=== PATIENT | female | born 1955 | race Two or more races ===

== ENCOUNTER → 2023-04-11 | Outpatient (CLI) | payer BC ==
[2023-04-11 09:19] LABS: BUN/Creatinine Ratio 17.6 (10.0-20.0)
== END | disposition home or self-care (01) ==
LOC: LAB 07:10
PROVIDERS: ATTEND Internal Medicine
DX: I10 Essential (primary) hypertension (principal); E78.5 Hyperlipidemia, unspecified
CPT/HCPCS: 36415; 80048; 80061

== ENCOUNTER → 2023-12-28 | Outpatient (CLI) | payer BC ==
[2023-12-28 09:18] LABS: Chloride 108 mmol/L (98-107); Potassium 4.3 mmol/L (3.5-5.1); Sodium 141 mmol/L (136-145)
[2023-12-28 09:19] LABS: Anion Gap 5 (5-15); Carbon Dioxide 28 mmol/L (20-30)
[2023-12-28 09:20] LABS: Calcium 9.7 mg/dL (8.5-10.1)
[2023-12-28 09:24] LABS: Glucose 117 mg/dL (74-106)
[2023-12-28 09:25] LABS: BUN/Creatinine Ratio 13.3 (10.0-20.0); Blood Urea Nitrogen 11 mg/dL (9-23); LDL Cholesterol 70 mg/dL (< 100); Triglycerides 156 mg/dL (< 150)
[2023-12-28 09:27] LABS: Cholesterol 126 mg/dL (< 200); HDL Cholesterol 33 mg/dL (40-59)
== END | disposition home or self-care (01) ==
LOC: LAB 08:36
PROVIDERS: ATTEND Internal Medicine
DX: I10 Essential (primary) hypertension (principal); E78.5 Hyperlipidemia, unspecified
CPT/HCPCS: 36415; 80048; 80061

== ENCOUNTER 2024-03-26 18:48 | Emergency (ER) | payer BC ==
[~2024-03-26] VITALS: Ht 162.6 cm; Wt 78.2 kg
[2024-03-26 19:05] VITALS: BP 140/62; PULSE 100
[2024-03-27 02:02] VITALS: RESP 18; O2SAT 99
== END 2024-03-27 04:50 | disposition home or self-care (01) ==
LOC: ER 18:48
DX: S20.01XA Contusion of right breast, initial encounter (principal); N60.01 Solitary cyst of right breast; I10 Essential (primary) hypertension; E78.5 Hyperlipidemia, unspecified; Z98.890 Other specified postprocedural states; W22.8XXA Striking against or struck by other objects, initial encounter; Y93.89 Activity, other specified; Y92.89 Other specified places as the place of occurrence of the external cause; Y99.8 Other external cause status
CPT/HCPCS: 76642

== ENCOUNTER → 2024-04-05 | Outpatient (CLI) | payer BC ==
[2024-04-05 12:08] LABS: Basophils # (auto) 0 10 ^3/uL (0-0.2); Basophils % (auto) 0.6 % (0.0-2.0); Eosinophils # (auto) 0.2 10 ^3/uL (0-0.8); Eosinophils % (auto) 2.5 % (0.0-7.0); Hematocrit 38.1 % (36.0-46.0); Hemoglobin 12.9 g/dL (12.2-16.2); Lymphocytes % (auto) 26.5 % (10.0-50.0); Mean Corpuscular Hemoglobin 30.3 pg (28.0-32.0); Mean Corpuscular Volume 89.3 fL (80.0-100.0); Monocytes # (auto) 0.5 10 ^3/uL (0-1.3); Monocytes % (auto) 6.2 % (0.0-12.0); Neutrophils # (auto) 4.9 10 ^3/uL (1.6-8.6); Neutrophils % (auto) 64.2 % (37.0-80.0); Red Blood Cells 4.26 10^6/uL (4.0-5.20); White Blood Cell 7.7 10^3/uL (4.4-10.8)
[2024-04-05 12:46] LABS: Erythrocyte Sedimentation Rate 12 mm/hr (0-20)
== END | disposition home or self-care (01) ==
LOC: LAB 11:58
PROVIDERS: ATTEND Internal Medicine
DX: N61.0 Mastitis without abscess (principal)
CPT/HCPCS: 36415; 85025; 85652

== ENCOUNTER → 2024-11-05 | Outpatient (CLI) | payer BC ==
[2024-11-05 09:38] LABS: Triglycerides 113 mg/dL (< 150)
[2024-11-05 09:39] LABS: Cholesterol 123 mg/dL (< 200); LDL Cholesterol 68 mg/dL (< 100)
[2024-11-05 09:52] LABS: HDL Cholesterol 40 mg/dL (40-59)
== END | disposition home or self-care (01) ==
LOC: LAB 08:40
PROVIDERS: ATTEND Internal Medicine
DX: E78.5 Hyperlipidemia, unspecified (principal)
CPT/HCPCS: 36415; 80061

== ENCOUNTER → 2025-04-16 | Outpatient (CLI) | payer BC | END | disposition home or self-care (01) | LOC: LAB 14:41 | PROVIDERS: ATTEND Internal Medicine | DX: Z12.11 Encounter for screening for malignant neoplasm of colon (principal) | CPT/HCPCS: 82270 ==

== ENCOUNTER 2025-08-06 08:20 | Outpatient (CLI) | payer BC ==
[2025-08-06 08:54] LABS: Anion Gap 7 (5-15); Carbon Dioxide 27 mmol/L (20-31); Potassium 4.4 mmol/L (3.5-5.1); Sodium 142 mmol/L (136-145)
[2025-08-06 08:55] LABS: Calcium 9.6 mg/dL (8.7-10.4)
[2025-08-06 09:00] LABS: BUN/Creatinine Ratio 15.1 (10.0-20.0); Blood Urea Nitrogen 11 mg/dL (9-23); Chloride 108 mmol/L (98-107); Glucose 105 mg/dL (74-106); Triglycerides 141 mg/dL (< 150)
[2025-08-06 09:02] LABS: Cholesterol 124 mg/dL (< 200); HDL Cholesterol 34 mg/dL (40-59)
== END 2025-08-06 17:00 | disposition home or self-care (01) ==
LOC: LAB 08:20
PROVIDERS: ATTEND Internal Medicine
DX: I10 Essential (primary) hypertension (principal); E78.5 Hyperlipidemia, unspecified; N39.0 Urinary tract infection, site not specified
CPT/HCPCS: 36415; 80048; 80061; 87086

== ENCOUNTER 2025-09-08 18:57 | Inpatient (IN) | payer BC ==
[~2025-09-08] VITALS: Ht 167.6 cm; Wt 75.2 kg
[2025-09-08 19:45] LABS: Hematocrit 25.9 % (36.0-46.0); Hemoglobin 8.9 g/dL (12.2-16.2); Mean Corpuscular Hemoglobin 32.3 pg (28.0-32.0); Mean Corpuscular Volume 94.3 fL (80.0-100.0); Nucleated Red Blood Cells % 0.0 %
[2025-09-08 20:05] LABS: Alanine Aminotransferase 20 U/L (7-40); Albumin 3.9 g/dL (3.2-4.8); Alkaline Phosphatase 62 U/L (46-116); Anion Gap 11 (5-15); BUN/Creatinine Ratio 56.6 (10.0-20.0); Bilirubin, Total 0.5 mg/dL (0.2-1.0); Calcium 9.2 mg/dL (8.7-10.4); Carbon Dioxide 23 mmol/L (20-31); Chloride 105 mmol/L (98-107); Potassium 4.6 mmol/L (3.5-5.1); Sodium 139 mmol/L (136-145); Total Protein 6.0 g/dL (5.7-8.2)
[2025-09-08 20:07] LABS: Blood Urea Nitrogen 43 mg/dL (9-23); Glucose 115 mg/dL (74-106)
--- NOTE | 2025-09-08 20:17 | ED.PDOC ---
History of Present Illness HPI Comments 70 y/o F presents with c/c of black stool production, with associated lightheadedness, for the past 2x days. She states on, recently, experiencing bloating and indigestion prior to onset of current symptoms. No reported blood thinner medication use, currently, but does report on black stool production whenever using them in the past. Denies any associated abdominal pain, weakness, nausea, vomiting, constipation, diarrhea, or further acute symptoms. Chief Complaint: GI Bleed Time Seen by MD: 19:45 Primary Care Provider: UNKNOWN Reviewed Notes: Nurses Notes, Medications, Allergies Allergies: Coded Allergies: NO KNOWN ALLERGIES (Unverified , 03/26/24) Information Source: Patient Mode of Arrival: Ambulatory Severity: Moderate Timing: Days Duration: Since onset Prehospital treatment: None Past Medical History PAST MEDICAL HISTORY: High Lipids, HTN LAP GRINDER History: No Pertinent LAP GRINDER History Family History Family History: Unknown Social History Smoker: Non-Smoker Alcohol: Denies ETOH Use Drugs: Denies Drug Use Lives In: Home All Other Systems: Reviewed and Negative (As per HPI) Physical Exam General Appearance: No Apparent Distress, Normal HEENT: Normal ENT Inspection, Pharynx Normal, TMs Normal Neck: Full Range of Motion, Non-Tender, Normal, Normal Inspection Respiratory: Chest Non-Tender, Lungs Clear, No Accessory Muscle Use, No Respiratory Distress, Normal Breath Sounds Cardiovascular: No Edema, No JVD, No Murmur, No Gallop, Normal Peripheral Pulses, Regular Rate/Rhythm Breast Exam: Deferred Gastrointestinal: No Organomegaly, Non Tender, No Pulsatile Mass, Normal Bowel Sounds, Soft Genitalia: Deferred Pelvic: Deferred Rectal: Deferred Extremities: No calf tenderness, Normal capillary refill, Normal inspection, Normal range of motion, Non-tender, No pedal edema Musculoskeletal : Apperance: Normal Neurologic: Alert, personal development coach II-XII nml as Tested, No Motor Deficits, Normal Affect, Normal Mood, No Sensory Deficits Cerebellar Function: Normal Reflexes: Normal Skin: Dry, Normal Color, Warm Lymphatic: No Adenopathy Was a procedure done? Was a procedure done?: No Differential Dx Considerations may include: upper GI bleed, dehydration, electrolyte imbalance, anemia, among others X-Ray, Labs, Meds, VS Vital Signs Date Time Temp Pulse Resp B/P (MAP) Pulse Ox O2 Delivery O2 Flow Rate FiO2 09/08/25 20:43 85 16 100 Room Air* 0 21 09/08/25 20:39 97.6 85 16 83/48 (60) 100 97.6 09/08/25 18:59 97.9 118 19 98/61 100 97.9 Lab Test 09/08/25 19:18 Range/Units White Blood Count 10.9 H 4.4-10.8 10^3/uL Red Blood Count 2.75 L 4.0-5.20 10^6/uL Hemoglobin 8.9 L 12.2-16.2 g/dL Hematocrit 25.9 L 36.0-46.0 % Mean Corpuscular Volume 94.3 80.0-100.0 fL Mean Corpuscular Hemoglobin 32.3 H 28.0-32.0 pg Mean Corpuscular Hemoglobin Concent 34.3 32.0-36.0 g/dL Red Cell Distribution Width 13.3 11.8-14.3 % Platelet Count 313 140-450 10^3/uL Mean Platelet Volume 7.9 6.9-10.8 fL Neutrophils (%) (Auto) 75.4 37.0-80.0 % Lymphocytes (%) (Auto) 18.8 10.0-50.0 % Monocytes (%) (Auto) 3.9 0.0-12.0 % Eosinophils (%) (Auto) 1.5 0.0-7.0 % Basophils (%) (Auto) 0.4 0.0-2.0 % Neutrophils # (Auto) 8.2 1.6-8.6 10 ^3/uL Lymphocytes # (Auto) 2.1 0.4-5.4 10 ^3/uL Monocytes # (Auto) 0.4 0-1.3 10 ^3/uL Eosinophils # (Auto) 0.2 0-0.8 10 ^3/uL Basophils # (Auto) 0 0-0.2 10 ^3/uL Nucleated Red Blood Cells 0.0 % Sodium Level 139 136-145 mmol/L Potassium Level 4.6 3.5-5.1 mmol/L Chloride Level 105 98-107 mmol/L Carbon Dioxide Level 23 20-31 mmol/L Anion Gap 11 5-15 Blood Urea Nitrogen 43 H 9-23 mg/dL Creatinine 0.76 0.550-1.02 mg/dL Glomerular Filtration Rate Calc 85 >90 mL/min BUN/Creatinine Ratio 56.6 H 10.0-20.0 Serum Glucose 115 H 74-106 mg/dL Calcium Level 9.2 8.7-10.4 mg/dL Total Bilirubin 0.5 0.2-1.0 mg/dL Aspartate Amino Transferase (AST) 10 L 13-40 U/L Alanine Aminotransferase (ALT) 20 7-40 U/L Alkaline Phosphatase 62 46-116 U/L Total Protein 6.0 5.7-8.2 g/dL Albumin 3.9 3.2-4.8 g/dL Current Medications Medications (Trade) Dose Ordered Sig/Jessi Route Start Time Stop Time Status Last Admin Sodium Chloride 1,000 ml @ 1,000 mls/hr Q1H ONCE IV 09/08/25 19:15 09/08/25 20:14 DC 09/08/25 20:39 Pantoprazole Sodium 50 ml @ 10 mls/hr Q5H ONCE IV 09/08/25 19:15 09/09/25 00:14 09/08/25 21:55 Time of 1ST Reevaluation: 20:15 Reevaluation 1ST: Unchanged Patient Education/Counseling: Diagnosis, Treatment Family Education/Counseling: No Family Present SEPSIS Sepsis Screen Date sepsis recognized/suspect: Sep 08, 2025 Time Sepsis recognized/suspect: 1858 Recent Procedure: No On Antibiotic Therapy: No Respiratory Rate >20: No Heart Rate >90: Yes Temp<36 C (96.8 F) or >38.3 C: No SBP <90 or MAP <65 mmHG: No New Acute Mental Status Change: No Is the patient on CPAP, BIPAP,: No Physician Orders Urinalysis (09/08/25 19:04) Stool Occult Blood (09/08/25 19:04) Heplock Iv (09/08/25 19:04) Pantoprazole 40mg/50ml Ns Ae (Protonix) (09/08/25 19:15) Vital Signs Date Time Temp Pulse Resp B/P (MAP) Pulse Ox O2 Delivery O2 Flow Rate FiO2 09/08/25 20:43 85 16 100 Room Air* 0 21 09/08/25 20:39 97.6 85 16 83/48 (60) 100 97.6 09/08/25 18:59 97.9 118 19 98/61 100 97.9 Laboratory Tests Test 09/08/25 19:18 White Blood Count 10.9 10^3/uL (4.4-10.8) H Medications Medications Dose Ordered Sig/Jsesi Route Start Time Stop Time Status Last Admin Dose Admin Pantoprazole Sodium 50 ml @ 10 mls/hr Q5H ONCE IV 09/08/25 19:15 09/09/25 00:14 09/08/25 21:55 Sodium Chloride 1,000 ml @ 1,000 mls/hr Q1H ONCE IV 09/08/25 19:15 09/08/25 20:14 DC 09/08/25 20:39 Departure 1 Departure Time of Disposition: 22:00 Impression: Primary Impression: Upper GI bleed Additional Impression: Anemia Disposition: ADMITTED INPATIENT Condition: Guarded Discharged With: Self Comments 70-year-old female complains of melena for the last couple of days. Also lightheaded and dizziness with standing and activity. On lab review she is anemic with a hemoglobin of 8.9. Patient was started on a Protonix drip and given IV fluids. Patient will need admission for supportive care and further workup. Critical Care Note Critical Care Time?: Yes (35 min-critical care time only) Critical care comment: Total critical care time: Approximately 36 minutes Due to a high probability of clinically significant, life threatening deterioration, the patient required my highest level of preparedness to intervene emergently and I personally spent this critical care time directly and personally managing the patient. This critical care time included obtaining a history; examining the patient; pulse oximetry; ordering and review of studies; arranging urgent treatment with development of a management plan; evaluation of patient's response to treatment; frequent reassessment; and, discussions with other providers. This critical care time was performed to assess and manage the high probability of imminent, life-threatening deterioration that could result in multi-organ failure. It was exclusive of separately billable procedures and treating other patients. Stability Stability form required: No Heart Score Heart Score: Heart Score Response (Comments) Value History N/A 0 EKG N/A 0 Age N/A 0 Risk Factors N/A 0 Troponin N/A 0 Total 0 I personally scribed for MARYCHUY CM MD ([email or web address]) on 09/08/25 at 20:17. Electronically submitted by Francisco Chanel ([email or web address]). MARYCHUY CM MD Sep 08, 2025 20:17
[2025-09-08] MEDS: SODIUM CHLORIDE 0.9% 1,000 ML IV ONE ×2 (20:39→23:50)
[2025-09-08 20:43] VITALS: PULSE 85; RESP 16; O2SAT 100
[2025-09-08] MEDS: PANTOPRAZOLE 40mg/50ML NS AE 50 ML IV ONE (21:55)
[2025-09-08] MEDS ORDERED: ONDANSETRON HCL 4 MG/2 ML VIAL IV PRN (23:00)
[2025-09-08] MEDS: PANTOPRAZOLE 40mg/50ML NS AE 50 ML IV SCH (23:13)
[2025-09-08 23:24] LABS: INR 0.97 (0.9-1.15); Partial Thromboplastin Time 26.2 SEC (24.5-34.5); Prothrombin Time 10.3 sec (9.3-11.8)
[2025-09-09 01:34] LABS: Urine Protein, UAD Negative (Negative)
--- NOTE | 2025-09-09 04:23 | DVHHP2 ---
History of Present Illness Reason for Visit: GI bleed History of Present Illness 70-year-old female presents for evaluation of GI bleed. Patient reports a two day history of noticing dark colored stools. Denies abdominal pain, nausea or vomiting. No cardiac or respiratory complaints. Past Medical History Hypertension and dyslipidemia Past Surgical History Vascular stent Family History Noncontributory Smoke: No ALCOHOL: none Drugs: None Lives: with Family Review of Systems Review of Systems Review of systems are currently negative otherwise addressed in HPI. Allergies: Coded Allergies: NO KNOWN ALLERGIES (Unverified , 03/26/24) Medications Current Medications Medications Dose Ordered Sig/Jessi Route Start Time Stop Time Status Last Admin Dose Admin Pantoprazole Sodium 50 ml @ 10 mls/hr Q5H IV 09/08/25 23:00 09/08/25 23:13 10 MLS/HR Ondansetron HCl 4 mg Q4HP PRN IV 09/08/25 23:00 Exam Vital Signs Vital Signs Date Time Temp Pulse Resp B/P (MAP) Pulse Ox O2 Delivery O2 Flow Rate FiO2 09/08/25 22:31 82 16 131/55 (80) 98 09/08/25 20:43 Room Air* 0 21 09/08/25 20:39 97.6 97.6 Exam Gen: 70-year-old female in mild distress. Skin: Warm, dry, normal color and texture, no rash. HEENT: Normocephalic atraumatic, mucous membranes moist and pink. Neck: Cervical and supraclavicular nodes normal without enlargement, trachea is midline, thyroid gland is normal without masses. Pulmonary: Clear to auscultation and percussion bilaterally. Cardiac: Regular rate and rhythm. No murmur Abdomen: Soft, nontender, nondistended, bowel sounds present all 4 quadrants, no guarding, no rigidity, no organomegaly. Extremities: No cyanosis, clubbing, no edema Neuro: Cranial nerves II through XII grossly intact, normal affect and speech, no focal motor deficits. Labs/Xrays Labs Test 09/09/25 00:19 09/08/25 19:18 Range/Units Urine Color Light-yellow Yellow Urine Clarity Turbid H Clear Urine pH 5.0 5.0-9.0 Urine Specific [place] 1.022 1.001-1.035 Urine Protein Negative Negative Urine Ketones Negative Negative Urine Blood Negative Negative /uL Urine Nitrite Negative Negative Urine Bilirubin Negative Negative Urine Urobilinogen Normal Negative mg/dL Urine Leukocyte Esterase Trace Negative /uL Urine RBC None seen 0 - 4 /hpf Urine Microscopic WBC 5 0-5 /HPF Urine Squamous Epithelial Cells Few <5 /hpf Urine Bacteria Few H None Seen /hpf Urine Hyaline Casts Many 0 - 2 /lpf Urine Mucus Few None Seen Urine Glucose Normal Normal mg/dL White Blood Count 10.9 H 4.4-10.8 10^3/uL Red Blood Count 2.75 L 4.0-5.20 10^6/uL Hemoglobin 8.9 L 12.2-16.2 g/dL Hematocrit 25.9 L 36.0-46.0 % Mean Corpuscular Volume 94.3 80.0-100.0 fL Mean Corpuscular Hemoglobin 32.3 H 28.0-32.0 pg Mean Corpuscular Hemoglobin Concent 34.3 32.0-36.0 g/dL Red Cell Distribution Width 13.3 11.8-14.3 % Platelet Count 313 140-450 10^3/uL Mean Platelet Volume 7.9 6.9-10.8 fL Neutrophils (%) (Auto) 75.4 37.0-80.0 % Lymphocytes (%) (Auto) 18.8 10.0-50.0 % Monocytes (%) (Auto) 3.9 0.0-12.0 % Eosinophils (%) (Auto) 1.5 0.0-7.0 % Basophils (%) (Auto) 0.4 0.0-2.0 % Neutrophils # (Auto) 8.2 1.6-8.6 10 ^3/uL Lymphocytes # (Auto) 2.1 0.4-5.4 10 ^3/uL Monocytes # (Auto) 0.4 0-1.3 10 ^3/uL Eosinophils # (Auto) 0.2 0-0.8 10 ^3/uL Basophils # (Auto) 0 0-0.2 10 ^3/uL Nucleated Red Blood Cells 0.0 % Prothrombin Time 10.3 9.3-11.8 sec Prothrombin Time INR 0.97 0.9-1.15 Activated Partial Thromboplast Time 26.2 24.5-34.5 SEC Sodium Level 139 136-145 mmol/L Potassium Level 4.6 3.5-5.1 mmol/L Chloride Level 105 98-107 mmol/L Carbon Dioxide Level 23 20-31 mmol/L Anion Gap 11 5-15 Blood Urea Nitrogen 43 H 9-23 mg/dL Creatinine 0.76 0.550-1.02 mg/dL Glomerular Filtration Rate Calc 85 >90 mL/min BUN/Creatinine Ratio 56.6 H 10.0-20.0 Serum Glucose 115 H 74-106 mg/dL Calcium Level 9.2 8.7-10.4 mg/dL Total Bilirubin 0.5 0.2-1.0 mg/dL Aspartate Amino Transferase (AST) 10 L 13-40 U/L Alanine Aminotransferase (ALT) 20 7-40 U/L Alkaline Phosphatase 62 46-116 U/L Total Protein 6.0 5.7-8.2 g/dL Albumin 3.9 3.2-4.8 g/dL SEPSIS Sepsis Screen Date sepsis recognized/suspect: Sep 08, 2025 Time Sepsis recognized/suspect: 1858 Recent Procedure: No On Antibiotic Therapy: No Respiratory Rate >20: No Heart Rate >90: Yes Temp<36 C (96.8 F) or >38.3 C: No SBP <90 or MAP <65 mmHG: No New Acute Mental Status Change: No Is the patient on CPAP, BIPAP,: No Physician Orders Pantoprazole 40mg/50ml Ns Ae (Protonix) (09/08/25 23:00) * [facility] Insurance Sales Agent (09/08/25 22:50) Stool Occult Blood (09/08/25 22:50) Gastric Occult Blood (09/08/25 22:50) Sodium Chloride 0.9% (09/08/25 23:00) Admit (09/08/25 22:52) Ondansetron Hcl (Zofran) (09/08/25 23:00) Complete Blood Count (09/09/25 04:00) Npo (Nothing By Mouth) Diet (09/09/25 Breakfast) Condition: Stable (09/08/25 22:52) Bedrest With Bathroom Privileg (09/08/25 22:52) Basic Metabolic Panel (09/09/25 04:00) Vital Signs Date Time Temp Pulse Resp B/P (MAP) Pulse Ox O2 Delivery O2 Flow Rate FiO2 09/08/25 22:31 82 16 131/55 (80) 98 10/19/25 20:43 85 16 100 Room Air* 0 21 09/08/25 20:39 97.6 85 16 83/48 (60) 100 97.6 Laboratory Tests Test 09/08/25 19:18 White Blood Count 10.9 10^3/uL (4.4-10.8) H Medications Medications Dose Ordered Sig/Jessi Route Start Time Stop Time Status Last Admin Dose Admin Pantoprazole Sodium 50 ml @ 10 mls/hr Q5H IV 09/08/25 23:00 09/08/25 23:13 10 MLS/HR Pantoprazole Sodium 50 ml @ 10 mls/hr Q5H ONCE IV 09/08/25 19:15 09/08/25 22:55 DC 09/08/25 21:55 10 MLS/HR Sodium Chloride 1,000 ml @ 1,000 mls/hr Q1H ONCE IV 09/08/25 19:15 09/08/25 20:14 DC 09/08/25 20:39 1,000 MLS/HR Assessment/Plan Assessment/Plan Assessment GI bleed Mild anemia Plan Admit the patient to [facility] to the hospitalist GI consultation NPO Maintenance IV fluids Continue treatment per orders. Plan discussed with: Patient My Orders Orders - MALACHI SILVERIO Procedure Category Date Status Time Pantoprazole PHA 09/08/25 In Process 40mg/50ml Ns Ae 23:00 * [facility] Insurance Sales Agent CONS 09/08/25 Transmitted 22:50 Stool Occult Blood LAB 09/08/25 Logged 22:50 Gastric Occult Blood LAB 09/08/25 Logged 22:50 Sodium Chloride 0.9% PHA 09/08/25 In Process 23:00 Admit ADMIT 09/08/25 Transmitted 22:52 Ondansetron Hcl PHA 09/08/25 In Process (Zofran) 23:00 Complete Blood Count LAB 09/09/25 Logged 04:00 Npo (Nothing By DIET 09/09/25 Transmitted Mouth) Diet Breakfast Condition: Stable MOISE 09/08/25 In Process 22:52 Bedrest With Bathroom MOISE 09/08/25 In Process Privileg 22:52 Basic Metabolic Panel LAB 09/09/25 Logged 04:00 Date of Service: Sep 08, 2025 Billing Provider: MALACHI SILVERIO Common Visit Codes: [id number] INP/OBS CARE (HIGH) MALACHI SILVERIO [facility] Sep 09, 2025 04:23
[2025-09-09 08:28] VITALS: PULSE 83; RESP 16; O2SAT 100
[2025-09-09 08:36] LABS: Hemoglobin 8.1 g/dL (12.2-16.2); Nucleated Red Blood Cells % 0.1 %
[2025-09-09 08:37] LABS: Hematocrit 23.3 % (36.0-46.0); Mean Corpuscular Hemoglobin 32.6 pg (28.0-32.0); Mean Corpuscular Volume 93.3 fL (80.0-100.0)
[2025-09-09 08:55] LABS: Potassium 4.1 mmol/L (3.5-5.1); Sodium 140 mmol/L (136-145)
[2025-09-09 08:56] LABS: Anion Gap 10 (5-15); Carbon Dioxide 21 mmol/L (20-31)
[2025-09-09 08:57] LABS: Calcium 9.1 mg/dL (8.7-10.4)
[2025-09-09 09:02] LABS: BUN/Creatinine Ratio 42.9 (10.0-20.0)
[2025-09-09 09:11] LABS: Blood Urea Nitrogen 33 mg/dL (9-23); Chloride 109 mmol/L (98-107); Glucose 112 mg/dL (74-106)
--- NOTE | 2025-09-09 14:02 | DVHPN2 ---
Subjective Patient denies any symptoms at this time Reviewed: Care Plan, H&P, Labs Changes from previous H/P or p: No Changes General: Per HPI Objective Vitals Vital Signs Date Time Temp Pulse Resp B/P (MAP) Pulse Ox O2 Delivery O2 Flow Rate FiO2 09/09/25 13:07 67 09/09/25 12:00 17 119/52 (74) 98 09/09/25 08:37 98.0 98.0 09/09/25 08:28 Room Air* 0 21 Intake/Output Intake and Output 09/09/25 07:00 Intake Total 1000 ml Balance 1000 ml Intake IV Total 1000 ml General Appearance: Alert, Oriented X3, Cooperative, No acute distress HEENT: Atraumatic, PERRLA Lungs: Clear to auscultation, Normal air movement Cardiovascular: Normal S1, Normal S2 Abdomen: Normal bowel sounds, Soft, No tenderness, No hepatospenomegaly Musculoskeletal: Normal sensory function, Normal motor function Neuro: Normal gait, Normal speech Skin: Dry, Intact Psych/Mental Status: Mental status NL, Mood NL Medications Current Medications Medications Dose Ordered Sig/Jessi Route Start Time Stop Time Status Last Admin Dose Admin Pantoprazole Sodium 50 ml @ 10 mls/hr Q5H IV 09/08/25 23:00 09/09/25 08:32 10 MLS/HR Ondansetron HCl 4 mg Q4HP PRN IV 09/08/25 23:00 Laboratory Results Laboratory Tests 09/09/25 08:06 Chemistry Test 09/08/25 19:18 09/09/25 08:06 Albumin 3.9 g/dL (3.2-4.8) Calcium Level 9.2 mg/dL (8.7-10.4) 9.1 mg/dL (8.7-10.4) Total Protein 6.0 g/dL (5.7-8.2) Coagulation Test 09/08/25 19:18 Prothrombin Time 10.3 sec (9.3-11.8) Prothrombin Time INR 0.97 (0.9-1.15) Activated Partial Thromboplast Time 26.2 SEC (24.5-34.5) LFT Test 09/08/25 19:18 Alanine Aminotransferase (ALT) 20 U/L (7-40) Alkaline Phosphatase 62 U/L (46-116) Aspartate Amino Transferase (AST) 10 U/L (13-40) L Total Bilirubin 0.5 mg/dL (0.2-1.0) Urinalysis Test 09/09/25 00:19 Urine Color Light-yellow (Yellow) Urine Clarity Turbid (Clear) H Urine pH 5.0 (5.0-9.0) Urine Specific [place] 1.022 (1.001-1.035) Urine Protein Negative (Negative) Urine Ketones Negative (Negative) Urine Blood Negative /uL (Negative) Urine Nitrite Negative (Negative) Urine Bilirubin Negative (Negative) Urine Urobilinogen Normal mg/dL (Negative) Urine Leukocyte Esterase Trace /uL (Negative) Urine RBC None seen /hpf (0 - 4) Urine Microscopic WBC 5 /HPF (0-5) Urine Squamous Epithelial Cells Few /hpf (<5) Urine Bacteria Few /hpf (None Seen) H Urine Hyaline Casts Many /lpf (0 - 2) Urine Mucus Few (None Seen) Urine Glucose Normal mg/dL (Normal) Labs and/or images reviewed: Labs reviewed by me, Image(s) reviewed by me Assessment/Plan Assessment/Plan Impression: -GI bleed -symptomatic anemia -peripheral arterial disease with previous stent placement -dyslipidemia -primary hypertension Plan: -continue Protonix infusion -GI consultation -start clear liquid diet -hold Plavix and aspirin -check CEA -repeat labs in a.m. Total time spent with patient discussing and formulating plan of care: 35 minutes. This medical document was created using an electronic medical record system with [employer] dictation system. Although this document has been carefully reviewed, there may still be some phonetic and typographical errors. These areas are purely typographical due to imperfections of the software programs, and do not reflect any compromise in the patient's medical care. Plan discussed with: Patient, Other (RN) My Orders Orders - DANIE GALVAN NP Procedure Category Date Status Time *Consult Dr. Aguila CONS 09/09/25 Transmitted Jared 13:35 Clear Liq Diet DIET 09/09/25 Transmitted Dinner Complete Blood Count LAB 09/09/25 Logged 13:37 Date of Service: Sep 09, 2025 Billing Provider: DANIE GALVAN NP Common Visit Codes: [id number] INP/OBS CARE(HIGH) DANIE GALVAN NP Sep 09, 2025 14:01
[2025-09-09 14:07] LABS: Hemoglobin 7.1 g/dL (12.2-16.2)
[2025-09-09 14:09] LABS: Hematocrit 20.5 % (36.0-46.0); Mean Corpuscular Hemoglobin 32.3 pg (28.0-32.0); Mean Corpuscular Volume 93.9 fL (80.0-100.0); Nucleated Red Blood Cells % 0.1 %
[2025-09-09] MEDS: SODIUM CHLORIDE 0.9% 1,000 ML IV SCH (14:18)
[2025-09-09 20:00] VITALS: PULSE 77
--- NOTE | 2025-09-09 20:53 | DVHINCON2 ---
Date of service: Sep 09, [address] Garcia Reason for Consultation Melanotic stools dizziness abdominal bloating History of Present Illness This 70-year-old female presented to the emergency room with complaints of dizziness black tarry stools for the last two days. Patient also having bloating and indigestion. Denied any unusual travel any analgesic abuse And had COPD using clopidogrel as per the patient in the past. Did not get much detailed history from the patient Past Medical History Hypertension hyperlipidemia Past Surgical History None Family History Noncontributory Social History Denies smoking or drinking Allergies: Coded Allergies: NO KNOWN ALLERGIES (Unverified , 03/26/24) Current Medications Current Medications Medications (Trade) Dose Ordered Sig/Jessi Route PRN Reason Start Time Stop Time Status Last Admin Pantoprazole Sodium 50 ml @ 10 mls/hr Q5H IV 09/08/25 23:00 09/09/25 16:00 Ondansetron HCl (Zofran) 4 mg Q4HP PRN IV NAUSEA / VOMITING 09/08/25 23:00 Sodium Chloride 1,000 ml @ 75 mls/hr [id number] IV 09/09/25 14:00 09/09/25 14:18 Review of Systems Noncontributory Vital Signs Vital Signs Date Time Temp Pulse Resp B/P (MAP) Pulse Ox O2 Delivery O2 Flow Rate FiO2 09/09/25 18:26 70 09/09/25 18:00 17 138/67 (90) 99 09/09/25 08:37 98.0 98.0 09/09/25 08:28 Room Air* 0 21 Physical Exam Moderately built and nourished female in no acute distress slightly on the wasted ENT examination mild pallor Lungs are clear Cardiovascular unremarkable Abdomen is soft nontender no masses Neuro grossly intact Hemoglobin is 8.9 platelets count 313 white count is 10.9 Labs/Diagnostic Data Labs Test 09/09/25 13:56 09/09/25 08:06 09/09/25 00:19 09/08/25 19:18 Range/Units White Blood Count 5.8 # 4.4-10.8 10^3/uL Red Blood Count 2.19 L 4.0-5.20 10^6/uL Hemoglobin 7.1 L 12.2-16.2 g/dL Hematocrit 20.5 #L 36.0-46.0 % Mean Corpuscular Volume 93.9 80.0-100.0 fL Mean Corpuscular Hemoglobin 32.3 H 28.0-32.0 pg Mean Corpuscular Hemoglobin Concent 34.4 32.0-36.0 g/dL Red Cell Distribution Width 13.7 11.8-14.3 % Platelet Count 221 140-450 10^3/uL Mean Platelet Volume 7.5 6.9-10.8 fL Neutrophils (%) (Auto) 62.8 37.0-80.0 % Lymphocytes (%) (Auto) 29.1 10.0-50.0 % Monocytes (%) (Auto) 6.4 0.0-12.0 % Eosinophils (%) (Auto) 1.4 0.0-7.0 % Basophils (%) (Auto) 0.3 0.0-2.0 % Neutrophils # (Auto) 3.6 1.6-8.6 10 ^3/uL Lymphocytes # (Auto) 1.7 0.4-5.4 10 ^3/uL Monocytes # (Auto) 0.4 0-1.3 10 ^3/uL Eosinophils # (Auto) 0.1 0-0.8 10 ^3/uL Basophils # (Auto) 0 0-0.2 10 ^3/uL Nucleated Red Blood Cells 0.1 % Carcinoembryonic Antigen 1.78 <=5.0 ng/mL Sodium Level 140 136-145 mmol/L Potassium Level 4.1 3.5-5.1 mmol/L Chloride Level 109 H 98-107 mmol/L Carbon Dioxide Level 21 20-31 mmol/L Anion Gap 10 5-15 Blood Urea Nitrogen 33 #H 9-23 mg/dL Creatinine 0.77 0.550-1.02 mg/dL Glomerular Filtration Rate Calc 83 >90 mL/min BUN/Creatinine Ratio 42.9 H 10.0-20.0 Serum Glucose 112 H 74-106 mg/dL Calcium Level 9.1 8.7-10.4 mg/dL Urine Color Light-yellow Yellow Urine Clarity Turbid H Clear Urine pH 5.0 5.0-9.0 Urine Specific [place] 1.022 1.001-1.035 Urine Protein Negative Negative Urine Ketones Negative Negative Urine Blood Negative Negative /uL Urine Nitrite Negative Negative Urine Bilirubin Negative Negative Urine Urobilinogen Normal Negative mg/dL Urine Leukocyte Esterase Trace Negative /uL Urine RBC None seen 0 - 4 /hpf Urine Microscopic WBC 5 0-5 /HPF Urine Squamous Epithelial Cells Few <5 /hpf Urine Bacteria Few H None Seen /hpf Urine Hyaline Casts Many 0 - 2 /lpf Urine Mucus Few None Seen Urine Glucose Normal Normal mg/dL Prothrombin Time 10.3 9.3-11.8 sec Prothrombin Time INR 0.97 0.9-1.15 Activated Partial Thromboplast Time 26.2 24.5-34.5 SEC Total Bilirubin 0.5 0.2-1.0 mg/dL Aspartate Amino Transferase (AST) 10 L 13-40 U/L Alanine Aminotransferase (ALT) 20 7-40 U/L Alkaline Phosphatase 62 46-116 U/L Total Protein 6.0 5.7-8.2 g/dL Albumin 3.9 3.2-4.8 g/dL Assessment 70-year-old female with complaints of melena dizziness and lightheadedness the patient was found to be anemic with a 8.9 patient is on Protonix drip at this time. Impression and GI bleeding of undetermined etiology undetermined etiology patient has been on blood thinners in the past clopidogrel apparently he she has taken last Tuesday with the were not clear-cut GI bleeding possibly gastritis or ulcer disease to be considered Anemia secondary to GI bleed With the patient hemoglobin and DrRiana Both well as office was about was normal though she is not clear-cut about it Plan/Recommendation Follow the hemoglobin close Protonix drip Stop clopidogrel will need EGD evaluation unstable after stopping the cardio club ductal for few days and before discharge Thank you Dr. French Plan discussed with: Patient TRAM FRENCH MD Sep 09, 2025 20:53
[2025-09-09 22:43] VITALS: BP 120/65; PULSE 75; RESP 18; TEMP 98; O2SAT 99
[2025-09-10] VITALS (11 sets, daily range): BP systolic 117–155; BP diastolic 66–80; PULSE 72–87; RESP 17–21; TEMP 97.7–98.6; O2SAT 95–100
[2025-09-10] MEDS ORDERED: ATOR20TA PO (01:20)
[2025-09-10] MEDS ORDERED: ENAL1TAB42 PO (01:20)
[2025-09-10] MEDS ORDERED: ASPI-543 PO (01:20)
[2025-09-10] MEDS ORDERED: CLOP75TA70 PO (01:20)
--- NOTE | 2025-09-10 11:09 | DVHPN2 ---
Subjective Patient denies any symptoms at this time Reviewed: Care Plan, H&P, Labs Changes from previous H/P or p: No Changes General: Per HPI Objective Vitals Vital Signs Date Time Temp Pulse Resp B/P (MAP) Pulse Ox O2 Delivery O2 Flow Rate FiO2 09/10/25 08:36 98.0 75 17 117/67 (84) 100 98.0 09/09/25 22:43 Room Air* 0 21 Intake/Output Intake and Output 09/10/25 07:00 Intake Total 405 ml Output Total 100 ml Balance 305 ml Intake Oral 150 ml IV Total 255 ml Output Urine Total 100 ml General Appearance: Alert, Oriented X3, Cooperative, No acute distress HEENT: Atraumatic, PERRLA Lungs: Clear to auscultation, Normal air movement Cardiovascular: Normal S1, Normal S2 Abdomen: Normal bowel sounds, Soft, No tenderness, No hepatospenomegaly Musculoskeletal: Normal sensory function, Normal motor function Neuro: Normal gait, Normal speech Skin: Dry, Intact Psych/Mental Status: Mental status NL, Mood NL Medications Current Medications Medications Dose Ordered Sig/Jessi Route Start Time Stop Time Status Last Admin Dose Admin Pantoprazole Sodium 50 ml @ 10 mls/hr Q5H IV 09/08/25 23:00 09/10/25 05:00 10 MLS/HR Ondansetron HCl 4 mg Q4HP PRN IV 09/08/25 23:00 Sodium Chloride 1,000 ml @ 75 mls/hr [id number] IV 09/09/25 14:00 09/10/25 03:20 75 MLS/HR Laboratory Results Laboratory Tests 09/09/25 08:06 09/09/25 13:56 Urinalysis Test 09/09/25 00:19 Urine Color Light-yellow (Yellow) Urine Clarity Turbid (Clear) H Urine pH 5.0 (5.0-9.0) Urine Specific [place] 1.022 (1.001-1.035) Urine Protein Negative (Negative) Urine Ketones Negative (Negative) Urine Blood Negative /uL (Negative) Urine Nitrite Negative (Negative) Urine Bilirubin Negative (Negative) Urine Urobilinogen Normal mg/dL (Negative) Urine Leukocyte Esterase Trace /uL (Negative) Urine RBC None seen /hpf (0 - 4) Urine Microscopic WBC 5 /HPF (0-5) Urine Squamous Epithelial Cells Few /hpf (<5) Urine Bacteria Few /hpf (None Seen) H Urine Hyaline Casts Many /lpf (0 - 2) Urine Mucus Few (None Seen) Urine Glucose Normal mg/dL (Normal) Labs and/or images reviewed: Labs reviewed by me, Image(s) reviewed by me Assessment/Plan Assessment/Plan Impression: -GI bleed -symptomatic anemia -peripheral arterial disease with previous stent placement -dyslipidemia -primary hypertension Plan: Events: Hemoglobin 7.1. -continue Protonix infusion -continue clear liquid diet -GI consultation: Please reassess for endoscopy given worsening anemia -hold Plavix and aspirin -repeat labs in a.m. Total time spent with patient discussing and formulating plan of care: 35 minutes. This medical document was created using an electronic medical record system with [employer] dictation system. Although this document has been carefully reviewed, there may still be some phonetic and typographical errors. These areas are purely typographical due to imperfections of the software programs, and do not reflect any compromise in the patient's medical care. Plan discussed with: Patient, Other (RN) My Orders Orders - DANIE GALVAN NP Procedure Category Date Status Time *Consult Dr. Aguila CONS 09/09/25 Transmitted [place] 13:35 Clear Liq Diet DIET 09/09/25 Transmitted Dinner Sodium Chloride 0.9% PHA 09/09/25 In Process 14:00 Education - Smoking MOISE 09/10/25 In Process Cessation 00:32 * Smoking Cessation CONS 09/10/25 Transmitted Consult 00:32 Date of Service: Sep 10, 2025 Billing Provider: DANIE GALVAN NP Common Visit Codes: [id number] INP/OBS CARE(HIGH) DANIE GALVAN NP Sep 10, 2025 11:08
[2025-09-10] MEDS ORDERED: ACETAMINOPHEN 500 MG TAB or CAP PO PRN (11:15)
[2025-09-10] MEDS ORDERED: HYDROcodone-ACET 5/325MG TAB PO PRN (11:15)
--- NOTE | 2025-09-10 14:17 | DVH ---
CHEST RADIOGRAPH Indication: SURGERY Technique: Single frontal view of the chest was obtained Comparison: None FINDINGS: Lines and Tubes: None Lungs: No focal consolidation. Pleura: No effusion. No pneumothorax. Cardiomediastinal contours: Unremarkable Bones: No acute osseous abnormality. IMPRESSION: No acute cardiopulmonary disease.
[2025-09-10] MEDS ORDERED: SODIUM CHLORIDE LOCK 10 ML ONE (15:15)
[2025-09-10] MEDS: LIDOCAINE VISCOUS 2% 15ML UD ONE (15:19)
[2025-09-10] MEDS: fentaNYL CITRATE 100 MCG/2 ML VL ONE (15:23)
[2025-09-10] MEDS: MIDAZOLAM HCL 5 MG/ML-1ML VIAL ONE (15:23)
[2025-09-10] MEDS: diphenhydrAMINE HCL 50 MG/1 ML VL ONE (15:23)
--- NOTE | 2025-09-10 15:35 | DVHOP2 ---
Operative Report DATE OF OPERATION: 09/10/25 PROCEDURE: Upper Endoscopy with biopsy. PREOPERATIVE INDICATION: The patient is a 70 -year-old female undergoing endoscopy for anemia and melena POSTOPERATIVE DIAGNOSES: 1. She had a 1.5 cm pre-pyloric antral gastric ulcer Vj classification C with surrounding gastritis hyperemia erythema 2. Mild gastroduodenitis with hyperemia erythema with no fresh or old blood in the upper GI tract at this time 3. 2 cm sliding-type hiatal hernia with irregular squamocolumnar junction grade a erosive esophagitis PROCEDURE PERFORMED BY: Shantanu Coleman GI NURSE: Elida SCOPE: Olympus videoendoscope. ASA CLASS: 2 PREOPERATIVE MEDICATIONS: Versed 2 mg, Fentanyl 50 mcg, Benadryl 25 mg I administered moderate sedation throughout this _7_ minutes procedure. An independent trained observer pushed medications at my direction, and monitored the patient's level of consciousness and physiological status throughout. PROCEDURE IN DETAIL: After obtaining an informed consent, the patient was placed on left lateral decubitus position. The patient was then sedated with the above medications. A bite block was placed between her teeth. The endoscope was then passed through the oropharynx, into the esophagus, and through the stomach and pylorus up to the second and third part of the duodenum. The endoscope was then withdrawn. The 2nd and 3rd part of the duodenum were normal in the duodenal bulb and postbulbar area showed moderate duodenitis with hyperemia erythema The pre-pyloric area antrum and distal body showed moderate gastritis with hyperemia erythema and there was a pre-pyloric antral gastric ulcer 1.5 cm in size This was Vj classification C at the 10 o'clock position with no active bleeding or visible vessel. There was no fresh or old blood in the upper GI tract On retroflexion and straight on view the fundus cardia and angularis were normal. The endoscope was then withdrawn into the distal esophagus Patient had a 2 cm sliding-type hiatal hernia with slightly irregular squamocolumnar junction minimal grade a erosive esophagitis. GE junction biopsies were obtained The remaining distal and proximal esophagus and oropharynx were unremarkable. The patient tolerated the procedure well without difficulty. COMPLICATIONS : None SPECIMENS: Duodenal biopsies Gastric biopsies GE junction biopsies DISPOSITION: Transfer back to the floor Stable PLAN: 1. Await for biopsy result 2. Will place pt on Protonix 40 mg bid p.o. 3. Carafate 1 g p.o. 4 times a day 4. Start with full liquid diet advance to soft mechanical 5. DC aspirin NSAIDs smoking alcohol 6. Outpatient follow up with me for routine elective screening colonoscopy advised SHANTANU COLEMAN MD Sep 10, 2025 15:35
[2025-09-10] MEDS: SUCRALFATE 1 GM/10 ML ORAL SUSP PO SCH (19:11)
[2025-09-11] VITALS (8 sets, daily range): BP systolic 95–174; BP diastolic 48–71; PULSE 73–101; RESP 16–18; TEMP 97.9–98.4; O2SAT 96–99
[2025-09-11] MEDS: PANTOPRAZOLE 40 MG/10 ML VIAL INJ IV SCH (06:31)
[2025-09-11 07:27] LABS: Hematocrit 19.9 % (36.0-46.0); Mean Corpuscular Hemoglobin 32.5 pg (28.0-32.0); Mean Corpuscular Volume 94.3 fL (80.0-100.0); Nucleated Red Blood Cells % 0.0 %
[2025-09-11 07:31] LABS: Hemoglobin 6.8 g/dL (12.2-16.2)
--- NOTE | 2025-09-11 07:34 | ECG ---
[facility] Test Date: 2025-09-10 Test Time: 14:30:44 Pat Name: MORGAN MCCLURE Department: Respiratoy Room: [facility] B Gender: F [employer] Hel[employer]: ELISE : 1955 Requested By: SHANTANU FLORIAN Order Number: [id number] Reading MD: Arnie Mckay Measurements Intervals [place] Rate: 75 P: 39 NM: 156 QRS: 41 QRSD: 85 T: 60 QT: 372 QTc: 416 Interpretive Statements Sinus rhythm Abnormal R-wave progression, early transition Electronically Signed On 09-16-2025 15:25:15 PDT by Arnie Mckay Please click the below link to view image of tracing.
[2025-09-11] MEDS ORDERED: SUCR1TAB31 OR (10:57)
[2025-09-11] MEDS ORDERED: PANT40TA2 PO (10:57)
--- NOTE | 2025-09-11 11:01 | DVHDS2 ---
Discharge Summary Date of Admission Sep 08, 2025 at 22:52 Date of Discharge: Sep 11, 2025 Admitting Diagnosis GI bleed Labs/Diagnostic Data: Laboratory Results Test 09/11/25 04:48 09/09/25 13:56 09/09/25 08:06 09/09/25 00:19 White Blood Count 4.9 10^3/uL (4.4-10.8) Red Blood Count 2.11 10^6/uL (4.0-5.20) Hemoglobin 6.8 g/dL (12.2-16.2) Hematocrit 19.9 % (36.0-46.0) Mean Corpuscular Volume 94.3 fL (80.0-100.0) Mean Corpuscular Hemoglobin 32.5 pg (28.0-32.0) Mean Corpuscular Hemoglobin Concent 34.5 g/dL (32.0-36.0) Red Cell Distribution Width 13.7 % (11.8-14.3) Platelet Count 226 10^3/uL (140-450) Mean Platelet Volume 7.9 fL (6.9-10.8) Neutrophils (%) (Auto) 59.4 % (37.0-80.0) Lymphocytes (%) (Auto) 32.2 % (10.0-50.0) Monocytes (%) (Auto) 5.4 % (0.0-12.0) Eosinophils (%) (Auto) 2.4 % (0.0-7.0) Basophils (%) (Auto) 0.6 % (0.0-2.0) Neutrophils # (Auto) 2.9 10 ^3/uL (1.6-8.6) Lymphocytes # (Auto) 1.6 10 ^3/uL (0.4-5.4) Monocytes # (Auto) 0.3 10 ^3/uL (0-1.3) Eosinophils # (Auto) 0.1 10 ^3/uL (0-0.8) Basophils # (Auto) 0 10 ^3/uL (0-0.2) Nucleated Red Blood Cells 0.0 % Carcinoembryonic Antigen 1.78 ng/mL (<=5.0) Sodium Level 140 mmol/L (136-145) Potassium Level 4.1 mmol/L (3.5-5.1) Chloride Level 109 mmol/L (98-107) Carbon Dioxide Level 21 mmol/L (20-31) Anion Gap 10 (5-15) Blood Urea Nitrogen 33 mg/dL (9-23) Creatinine 0.77 mg/dL (0.550-1.02) Glomerular Filtration Rate Calc 83 mL/min (>90) BUN/Creatinine Ratio 42.9 (10.0-20.0) Serum Glucose 112 mg/dL (74-106) Calcium Level 9.1 mg/dL (8.7-10.4) Urine Color Light-yellow (Yellow) Urine Clarity Turbid (Clear) Urine pH 5.0 (5.0-9.0) Urine Specific [place] 1.022 (1.001-1.035) Urine Protein Negative (Negative) Urine Ketones Negative (Negative) Urine Blood Negative /uL (Negative) Urine Nitrite Negative (Negative) Urine Bilirubin Negative (Negative) Urine Urobilinogen Normal mg/dL (Negative) Urine Leukocyte Esterase Trace /uL (Negative) Urine RBC None seen /hpf (0 - 4) Urine Microscopic WBC 5 /HPF (0-5) Urine Squamous Epithelial Cells Few /hpf (<5) Urine Bacteria Few /hpf (None Seen) Urine Hyaline Casts Many /lpf (0 - 2) Urine Mucus Few (None Seen) Urine Glucose Normal mg/dL (Normal) Test 09/08/25 19:18 Prothrombin Time 10.3 sec (9.3-11.8) Prothrombin Time INR 0.97 (0.9-1.15) Activated Partial Thromboplast Time 26.2 SEC (24.5-34.5) Total Bilirubin 0.5 mg/dL (0.2-1.0) Aspartate Amino Transferase (AST) 10 U/L (13-40) Alanine Aminotransferase (ALT) 20 U/L (7-40) Alkaline Phosphatase 62 U/L (46-116) Total Protein 6.0 g/dL (5.7-8.2) Albumin 3.9 g/dL (3.2-4.8) Other Laboratory Tests 09/11/25 04:48 09/09/25 08:06 Brief Hx & Hospital Course: History of Present Illness 70-year-old female presents for evaluation of GI bleed. Patient reports a two day history of noticing dark colored stools. Denies abdominal pain, nausea or vomiting. No cardiac or respiratory complaints. Course of hospitalization: Patient had Plavix and aspirin held. Shoes continued on clear liquid diet. Patient had GI consultation undergoing EGD yesterday with findings of no active bleeding, in the following findings: POSTOPERATIVE DIAGNOSES: 1. She had a 1.5 cm pre-pyloric antral gastric ulcer Vj classification C with surrounding gastritis hyperemia erythema 2. Mild gastroduodenitis with hyperemia erythema with no fresh or old blood in the upper GI tract at this time 3. 2 cm sliding-type hiatal hernia with irregular squamocolumnar junction grade a erosive esophagitis Patient is Protonix drip was changed to Protonix 40 mg IV b.i.d.. She has had no further active bleeding hospital. Hemoglobin is 6.8 today for which she will receive 1 unit PRBC. Patient will be discharged home thereafter and follow up with her PCP as well as Dr. Kassandra Coleman in 3-4 weeks. She will continue Protonix 40 mg p.o. b.i.d., Carafate 1 g p.o. b.i.d. for 30 days, and continue all previous home medications. Physical examination General: Alert and Oriented x3. No acute distress. Well-nourished. Eyes: EOMI. Anicteric. HENT: Moist mucous membranes. Lungs: Clear to auscultation bilaterally. No accessory muscle use. Cardiovascular: Regular rate and rhythm. No murmur. No JVD. Abdomen: Soft, non-tender and non-distended. No palpable masses. Extremities: No edema. Non-tender. Skin: No rashes or lesions. Warm. Neurologic: No focal neurological deficits. CN II-XII grossly intact, but not individually tested. Psychiatric: Cooperative. Appropriate mood and affect. Total time spent with patient discussing and formulating plan of care: 35 minutes. This medical document was created using an electronic medical record system with [employer] dictation system. Although this document has been carefully reviewed, there may still be some phonetic and typographical errors. These areas are purely typographical due to imperfections of the software programs, and do not reflect any compromise in the patient's medical care. Consults/Reason for consult Gastroenterology: GI bleed Operations or Procedures EGD: 09/10/25 Condition at Discharge: Guarded Final Diagnosis/Problems List -GI bleed -symptomatic anemia -peripheral arterial disease with previous stent placement -dyslipidemia -primary hypertension Discharge Disposition: Home Discharge Instruct/Medications Diet: Cardiac 2g Na,low cholest Activity: No Restrictions, As Tolerated Follow Up/Referral: Follow up with Dr. Kassandra Coleman in 3-4 weeks Follow up with PCP, Dr. Naidu, in one week Medications: Protonix 40 mg p.o. b.i.d. Carafate 1 g p.o. b.i.d. Resume previous home medications Scheduled Aspirin (Aspir-Low), 81 MG PO DAILY, (Reported) Atorvastatin Calcium (Lipitor), 1 TAB PO DAILY, (Reported) Clopidogrel Bisulfate (Clopidogrel), 75 MG PO DAILY, (Reported) Enalapril Maleate (Enalapril Maleate), 20 MG PO BID, (Reported) Pantoprazole Sodium Sesquihydr (Protonix), 40 MG PO BID Sucralfate (Carafate), 1 GM OR BID 36 Discharge Statement: "Patient was advised to return to the ER or call 911 if any headaches, dizziness, shortness of breath, chest pain, abdominal pain, bleeding, fevers, or worsening of medical condition. Patient was counseled about treatment plan, medications, possible side effects, patientverbalized understanding. All questions were answered to the best of my ability. This discharge took greater then 30 minutes in planning, reviewing documentation, counseling the patient, and discussing with other team members." ASSESSMENT ASSESSMENT Assessment Upper GI bleed Date of Service: Sep 11, 2025 Billing Provider: DANIE GALVAN NP Common Visit Codes: 46918-PKJ/[id number] DISCH DAY >30min DANIE GALVAN NP Sep 11, 2025 11:01
--- NOTE | 2025-09-11 22:06 | DVHPN2 ---
Progress Note - Dictate Date Seen: Sep 11, 2025 (Late entryPt seen at 2 pm) Medical Necessity Reason Pt with a Central, PICC or Fol: No Subjective No new complaints No melena Abd pain improved Tolerating diet EGD findings reviewed with pt vital signs Vital Sign Date Time Temp Pulse Resp B/P (MAP) Pulse Ox O2 Delivery O2 Flow Rate FiO2 09/11/25 14:39 98.4 84 17 174/64 98.4 09/11/25 12:31 98 09/11/25 08:00 Room Air* 0 21 Total Intake and Output 09/10/25 09/10/25 09/11/25 15:00 23:00 07:00 Intake Total 50 ml 450 ml 400 ml Balance 50 ml 450 ml 400 ml objective General Appearance: Alert, Oriented X3, Cooperative, No acute distress HEENT: Atraumatic, PERRLA Lungs: Clear to auscultation, Normal air movement Cardiovascular: Normal S1, Normal S2 Abdomen: Normal bowel sounds, Soft, No tenderness, No hepatospenomegaly Musculoskeletal: Normal sensory function, Normal motor function Neuro: Normal gait, Normal speech Skin: Dry, Intact Psych/Mental Status: Mental status NL, Mood NL laboratory and microbiology Laboratory Tests 09/11/25 04:48 09/09/25 08:06 Test 09/09/25 08:06 Range/Units Serum Glucose 112 H 74-106 mg/dL Problems(with codes): (1) Gastric ulcer (2) Upper GI bleed (3) Anemia Prognosis Plan Advance diet as tolerated Protonix 40 mg p.o. twice a day Carafate 1 g p.o. twice a day DC aspirin Excedrin and NSAIDs Outpatient follow up with me in 2-4 weeks to review results and discuss outpatient screening colonoscopy Plan discussed with: Patient SHANTANU FLORIAN MD Sep 11, 2025 22:06
== END 2025-09-11 16:24 | disposition home or self-care (01) | DRG 381 ==
LOC: ER 18:57 → OVERFLOW 22:52 → WEST WING 09-09 22:04
PROVIDERS: ADMIT Nurse Practitioner Acute Care; ATTEND Nurse Practitioner Acute Care
PROC: 0DB78ZX Excision of Stomach, Pylorus, Via Natural or Artificial Opening Endoscopic, Diagnostic (ICD-10-PCS; 2025-09-10)
PROC: 0DB48ZX Excision of Esophagogastric Junction, Via Natural or Artificial Opening Endoscopic, Diagnostic (ICD-10-PCS; 2025-09-10)
PROC: 0DB98ZX Excision of Duodenum, Via Natural or Artificial Opening Endoscopic, Diagnostic (ICD-10-PCS; principal; 2025-09-10 15:16)
PROC: 30233N1 Transfusion of Nonautologous Red Blood Cells into Peripheral Vein, Percutaneous Approach (ICD-10-PCS; 2025-09-11)
DX: K22.11 Ulcer of esophagus with bleeding (principal); D62 Acute posthemorrhagic anemia; K25.4 Chronic or unspecified gastric ulcer with hemorrhage; K29.91 Gastroduodenitis, unspecified, with bleeding; I10 Essential (primary) hypertension; K44.9 Diaphragmatic hernia without obstruction or gangrene; E78.5 Hyperlipidemia, unspecified; J44.9 Chronic obstructive pulmonary disease, unspecified; I73.9 Peripheral vascular disease, unspecified; K29.71 Gastritis, unspecified, with bleeding
CPT/HCPCS: 36415; 43239; 71045; 80048; 80053; 81001; 82378; 85025; 85610; 85730; 86850; 86900; 86901; 86920; 93005; 96361; 96365; 99291; G0378; J2250; J2470

== ENCOUNTER 2025-10-16 08:44 | Outpatient (CLI) | payer BC ==
[~2025-10-16 08:44] MED LIST: ASPI-543 PO; ATOR20TA PO; CLOP75TA70 PO; ENAL1TAB42 PO; PANT40TA2 PO; SUCR1TAB31 OR
[2025-10-16 09:12] LABS: Hematocrit 35.8 % (36.0-46.0); Hemoglobin 11.9 g/dL (12.2-16.2); Mean Corpuscular Hemoglobin 29.2 pg (28.0-32.0); Mean Corpuscular Volume 88.0 fL (80.0-100.0); Nucleated Red Blood Cells % 0.0 %
== END 2025-10-16 17:00 | disposition home or self-care (01) ==
LOC: LAB 08:44
PROVIDERS: ATTEND Internal Medicine
DX: D50.0 Iron deficiency anemia secondary to blood loss (chronic) (principal); N39.0 Urinary tract infection, site not specified
CPT/HCPCS: 36415; 82728; 85025; 87086